=== PATIENT | male | born 1955 | race Caucasian/White ===

== ENCOUNTER 2023-01-23 11:23 | Outpatient (CLI) | payer BC, MEDICARE, SELFPAY ==
[2023-01-23 11:32] VITALS: BP 139/67; PULSE 63; RESP 20; TEMP 36.8; O2SAT 95
--- NOTE | 2023-01-23 12:20 | DI.RAD_ITS ---
Exam(s) XR PAIN CLINIC LUMBAR SP 2V EXAM: XR PAIN CLINIC LUMBAR SP 2V CLINICAL HISTORY: Dx: Lumbar Radiculopathy TECHNIQUE: 2D and realtime digital imaging was performed. CONTRAST MATERIAL: Refer to procedure report. COMPARISON: No exams were available for comparison FINDINGS: Fluoroscopy was provided for Dr. Yoo during the performance of a lumbar epidural steroid injection. Please refer to the procedure report for complete details. Ka,r=31.5 mGy IMPRESSION:
[2023-01-23] MEDS: Omnipaque 240 MG/ML 50 ML BTL IJ (12:26)
[2023-01-23 12:27] VITALS: BP 159/79; PULSE 74; RESP 21; O2SAT 97
[2023-01-23] MEDS: methylPREDNISolone ACETATE 80 MG/ML VIAL IJ (12:27)
--- NOTE | 2023-01-23 12:30 | PDOC.PAIN_ITS ---
Date of service: 01/23/23 Time of Service: 12:33 Pain Managment Procedure Note Procedure Note Procedure Note: Lumbar Epidural Steroid Injection Procedure Note COMMENTS:He was previously evaluated for this procedure. He has low back pain radiating down the left leg and pathology on the MRI to explain these symptoms. Dx: Lumbosacral radiculopathy Pre-procedure pain VAS was 6/10 Daniel Reid has been referred to the [facility] for lumbar epidural steroid injection. The patient was greeted by the nurse who verified patients name and . Patient was then taken to the fluoroscopy suite. The patient was interviewed and the medial record reviewed. There were no medical, pharmacologic, radiographic, or other structural contraindications to attempting fluoroscopically guided lumbar epidural steroid injection. Risks and expected side effects as well as potential benefits of the procedure were reviewed and voiced concerns expressed. The patient consent form was signed and witnessed. Standard patient time-out procedure was performed. The patient was placed in the prone position on the fluoroscopy table and automated blood pressure cuff and pulse oximeter applied. The skin entry point for entering/approaching the epidural space at L5-S1 and marked. Following thorough chlorhexadine preparation of the skin and draping and 1% lidocaine infiltration of the skin entry point and subcutaneous tissues, a 18 gauge Touhy needle was placed under fluoroscopic guidance and with loss of resistance technique into the epidural space. Needle tip placement and depth were aided and confirmed by fluoroscopy. There was no paresthesia or return of blood or CSF through the needle. 1 cc's of Omnipaque 240 was injected with clear epidural spread confirmed with fluoroscopy. 80mg depomedrol was injected. The needle was flushed with 2 cc of 1% Lidocaine and removed without difficulty. There was not any unusual discomfort expressed by Daniel Reid. Patient's vital signs were stable throughout the procedure and were as recorded in nursing records. Follow up plans and appointments were discussed with patient. Post procedure instruction was given as documented in nursing records and having met discharge criteria and was discharged from the [facility]. COMMENTS: If this procedure is helpful (at least 50% improvement in pain and/or functioning for at least 3 months), it can be completed up to 4 times per 12 months. Sen Yoo DO, MPH [facility]-Pain Management [facility] [facility]
== END 2023-01-23 11:24 | disposition home or self-care (01) ==
LOC: PC 11:24
PROVIDERS: PCP Nurse Practitioner Family; Visit Provider Preventive Medicine Occupational Medicine
DX: M54.17 Radiculopathy, lumbosacral region (principal)
CPT/HCPCS: 62323; 72100; J1040; Q9967

== ENCOUNTER 2023-06-05 15:33 | Outpatient (CLI) | payer BC, MEDICARE, SELFPAY ==
--- NOTE | 2023-06-05 07:30 | DI.RAD_ITS ---
Exam(s) XR PAIN CLINIC LUMBAR SP 2V EXAM: XR PAIN CLINIC LUMBAR SP 2V CLINICAL HISTORY: Dx: Lumbar Radiculopathy. TECHNIQUE: Fluoroscopy was provided for the referring physician for guidance with performing pain cl inic injection procedure. COMPARISON: No exams were available for comparison FINDINGS: Please see procedure note for details. Fluoro time: 23.5 seconds RADIATION DOSE DELIVERED: Ka,r=18.64 mGy
[2023-06-05 16:02] VITALS: BP 155/100; PULSE 68; RESP 20; TEMP 36.6; O2SAT 97
--- NOTE | 2023-06-05 16:23 | PDOC.PAIN_ITS ---
Date of service: 06/05/23 Time of Service: 16:23 Pain Managment Procedure Note Procedure Note Procedure Note: PROCEDURE NOTE LUMBAR EPIDURAL STEROID INJECTION Date of Service: June 05, 2023 Patient:Daniel Harden? Provider: Sen Yoo DO, MPH Daniel Reid has been referred to the [facility] for a lumbar epidural steroid injection. Pre-operative diagnosis: Lumbosacral Radiculopathy Post-operative diagnosis: Same Pre-Procedure Pain: VAS= 5 /10 Comments: He had this procedure completed on 01/23/23 and had >3 months of >50% pain relief. He has been able to be more active. He is doing a home exercise program. He has been off of the Eliquis x 3 days and stayed on the ASA per [facility] guidelines. Daniel was interviewed and the medical record was reviewed.? There were no medical, pharmacologic, radiographic or other structural contraindications to attempting fluoroscopically guided Lumbar epidural steroid injection.? Risks, potential side effects, indications, and potential benefits of the procedure were reviewed with Daniel.? Questions and concerns were addressed.? After it was clear that Daniel was fully informed about the procedure, the printed consent form was signed by the patient and myself.? Daniel was placed in the prone position on the fluoroscopy table and automated blood pressure cuff and pulse oximeter applied. The skin entry point for entering/approaching the epidural space for the lumbar epidural steroid injection was marked. Following thorough chlorhexadine preparation of the skin and draping and 1% lidocaine infiltration of the skin entry point and subcutaneous tissues, an 18 gauge Touhy needle was placed and advanced under fluoroscopic guidance and with loss of resistance technique into the L5-S1 epidural space. Needle tip placement and depth were aided and confirmed by fluoroscopy. There was no paresthesia or return of blood or CSF through the needle. 1 mls of Omnipaque 240 was injected with clear epidural spread confirmed with fluoroscopy. 80 mg of Depo-Medrol was? injected. This was followed by 1 ml of preservative-free normal saline to flush the steroid out of the needle. There was no unusual discomfort expressed by Daniel. The needle was withdrawn without difficulty. (49 mls of Omnipaque was wasted) Daniel was observed and was without hemodynamic, neurologic, or allergic reactions.? Fluoroscopic images were digitally archived. Daniel's vital signs were stable throughout the procedure and were as recorded in nursing records. Follow up plans and appointments were discussed with Daniel. Post procedure instruction was given as documented in nursing records and having met discharge criteria Daniel was discharged from the [facility]. COMMENTS: No apparent complications. Post-procedure pain: VAS= 0/10. Daniel to contact [facility] as needed. If at least 50% improvement in pain and/or function for at least 3 months is achieved, this procedure can be repeated. I personally performed this entire procedure. SEN YOO DO, MPH [employer]-subspecialty board certification in Pain Medicine [facility]
[2023-06-05 16:57] VITALS: BP 150/75; PULSE 75; RESP 23; O2SAT 97
[2023-06-05] MEDS: methylPREDNISolone ACETATE 80 MG/ML VIAL IJ (16:58)
[2023-06-05] MEDS: Omnipaque 240 MG/ML 50 ML BTL IJ (16:58)
== END 2023-06-05 15:34 | disposition home or self-care (01) ==
LOC: PC 15:33
PROVIDERS: PCP Nurse Practitioner Family; Visit Provider Preventive Medicine Occupational Medicine
DX: M54.17 Radiculopathy, lumbosacral region (principal)
CPT/HCPCS: 62323; 72100; J1040; Q9967